=== PATIENT | male | born 1995 | race Caucasian/White ===

== ENCOUNTER 2021-01-29 16:59 | Emergency (ER) | payer OTHER ==
[~2021-01-29] VITALS: Ht 167.6 cm; Wt 68.0 kg
[2021-01-29 17:42] VITALS: BP_SYST 121; BP_SYST 122; BP_DIAS 74
[2021-01-29 17:51] VITALS: BP 121/72
--- NOTE | 2021-01-29 18:44 | ER.PDOC ---
General Chief Complaint: Male Stated Complaint: MALE Time seen by MD: 18:43 Source: patient Exam Limitations: no limitations History of Present Illness Initial Comments Left testicular pain since this afternoon. No fever or chills. Timing/Duration: this afternoon Severity/Quality: moderate, sharpness Associated Symptoms: Testicle pain (L), Scrotal swelling (left) Sexual History: Non-contributory Past Medical History Medical History: no pertinent history Surgical History: no surgical history Family History Significant Family History: no pertinent family hx Social History Alcohol Use: none Drug Use: none Review of Systems Constitutional: no symptoms reported EENTM: no symptoms reported Respiratory: no symptoms reported Cardiovascular: no symptoms reported Gastrointestinal: no symptoms reported Genitourinary: see HPI All Other Systems: Reviewed and Negative Physical Exam General Appearance: No Apparent Distress, WD/WN EENT: eyes nml inspection, nml ENT inspection, pharynx nml Neck: nml inspection, non-tender Cardiovascular/Respiratory: Regular Rate, Rhythm, No M/R/G, Normal Peripheral Pulses, No JVD, Normal Breath Sounds, No Respiratory Distress Abdomen: Normal Bowel Sounds, Non Tender, Soft, No Organomegaly, No Pulsatile Mass Male Genitals: Normal Genitalia, No Hernia, Scrotum Tenderness (L), Testicular Tenderness (L) Back: nml inspection Extremities: Normal Range of Motion, Non-Tender, Normal Inspection, No Pedal Edema, No Calf Tenderness, Normal Capillary Refill 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, No Motor/Sensory Deficits, Alert, Normal Mood/Affect, Oriented x 3 Skin: Normal Color, Warm/Dry Results/Orders Results/Orders Orders - SOM ZAMORA MD Cbc With Auto Diff (01/29/21 18:04) Us Scrotal (01/29/21 18:04) Basic Metabolic Panel (01/29/21 19:29) Vital Signs Date Time Temp Pulse Resp B/P (MAP) Pulse Ox O2 Delivery O2 Flow Rate FiO2 01/29/21 17:51 98.4 71 18 121/72 (88) 98 Room Air 01/29/21 17:42 98.4 71 18 01/29/21 17:42 98.4 73 18 98 Laboratory Tests Test 01/29/21 19:34 White Blood Count 13.9 10^3/uL (4.5-11.0) H Red Blood Count 5.05 10^6/uL (4.50-5.90) Hemoglobin 15.1 g/dL (13.9-16.3) Hematocrit 45.7 % (37.0-53.0) Mean Corpuscular Volume 90.5 fL (78-100) Mean Corpuscular Hemoglobin 29.9 pg (26-34) Mean Corpuscular Hemoglobin Concent 33.0 g/dL (33-36.5) Red Cell Distribution Width 12.9 % (11.5-14.5) Platelet Count 226 10^3/uL (150-400) Mean Platelet Volume 8.8 fL (7.8-11.0) Neutrophils (%) (Auto) 76.7 % (41.0-85.0) Lymphocytes (%) (Auto) 14.4 % (24.0-44.0) L Monocytes (%) (Auto) 5.8 % (5.0-12.0) Neutrophils # (Auto) 10.7 10^3/uL (1.8-7.7) H Lymphocytes # (Auto) 2.00 10^3/uL1 (1.0-4.8) Monocytes # (Auto) 0.8 10^3/uL (0.3-0.8) Absolute Immature Granulocyte (auto 0.02 10^3 u/L (0-2) Absolute Eosinophils (auto) 0.4 10^3/uL (0.0-0.2) H Immature Granulocytes % 0.10 % (0.00-0.50) Eosinophils % 2.6 % (0.0-5.0) Basophils % 0.4 % (0.0-0.2) H Basophils # 0.1 10^3/uL (0.0-0.1) Sodium Level 141 mmol/L (132-145) Potassium Level 4.3 mmol/L (3.6-5.2) Chloride Level 105.0 mmol/L (96-109) Carbon Dioxide Level 30.4 mmol/L (20.0-32) Glucose Level 91 mg/dL (70-110) Blood Urea Nitrogen 11 mg/dL (7-18) Creatinine 0.94 mg/dL (0.59-1.40) Calcium Level 9.3 mg/dL (8.4-10.5) Anion Gap 9.9 Estimated GFR () 119.3 (>/=60) Est GFR (CKD-EPI)(Non-Afr [place]) 98.6 (>/=60) BUN/Creatinine Ratio 11.0 Progress Progress Scrotal Sonogram: Findings suggestive of left and possible right epididymitis. No evidence of torsion. CBC shows a WBC of 13.9. Reviewed labs and sonogram results with the patient who voices understanding. No evidence of torsion. ER DEPART Departure Time of Disposition: 20:14 Disposition: 01 HOME / SELF CARE / HOMELESS Impression: Primary Impression: Epididymo-orchitis Condition: Stable Referrals: PCP,UNKNOWN (PCP) PRIMARY CARE PROVIDER Additional Instructions: Doxycycline Ibuprofen Follow-up with your PCP in 3 to 5 days Return to ED if worsening or concerns Duration or Time Spent with Pa: 45 min SOM ZAMORA MD Jan 29, 2021 18:44
--- NOTE | 2021-01-29 19:15 | DIREP ---
PROCEDURE:US TESTICULAR COMPARISON:None. INDICATIONS:Left testicular pain, red, swollen x3d, palp x4hrs TECHNIQUE:The scrotum was evaluated with grant scale, spectral analysis, and color duplex doppler sonography. FINDINGS: RIGHT TESTICLE: measures 5.6 x 2.6 x 3.7 cm. No mass or microcalcifications. LEFT TESTICLE: measures 4.9 x 2.5 x 3.6 cm. No mass or microcalcifications. EPIDIDYMIS:Prominent right 1.3 cm right. Enlarged left with increased vascularity, 1.6 cm. OTHER:Small bilateral hydroceles. DOPPLER FLOW: Symmetric waveforms with sustained diastolic flow. CONCLUSION:Findings suggestive of left and possible right epididymitis. No evidence of torsion. Dictated by: Leann Yip MD on 01/29/2021 at 07:08 PM
[2021-01-29 19:42] LABS: BASOPHIL # 0.1 10^3/uL (0.0-0.1); BASOPHIL % 0.4 % (0.0-0.2); EOSINOPHIL # 0.4 10^3/uL (0.0-0.2); EOSINOPHIL % 2.6 % (0.0-5.0); LYMPHOCYTES % 14.4 % (24.0-44.0); MEAN CORP HGB 29.9 pg (26-34); MONOCYTES # 0.8 10^3/uL (0.3-0.8); MONOCYTES % 5.8 % (5.0-12.0); NEUTROPHIL # 10.7 10^3/uL (1.8-7.7); NEUTROPHILS % 76.7 % (41.0-85.0); RED CELL DISTRIBUTION WIDTH 12.9 % (11.5-14.5)
[2021-01-29 19:50] LABS: CALCIUM 9.3 mg/dL (8.4-10.5); CARBON DIOXIDE 30.4 mmol/L (20.0-32)
[2021-01-29] MEDS ORDERED: CIPRO PO STA (20:12)
[2021-01-29] MEDS ORDERED: ROCEPHIN IM STA (20:12)
[2021-01-29] MEDS ORDERED: LIDOCAINE 1% VIAL ONE (20:15)
[2021-01-29] MEDS ORDERED: VIBRAMYCIN PO STA (20:15)
[2021-01-29] MEDS ORDERED: VIBRAMYCIN ONE ×2 (20:16→20:21)
[2021-01-29] MEDS ORDERED: ROCEPHIN ONE (20:16)
[2021-01-29 20:20] VITALS: BP 118/71
== END 2021-01-29 20:30 | disposition home or self-care (01) ==
LOC: ER 16:59
DX: N45.3 Epididymo-orchitis (principal)
CPT/HCPCS: 36415; 76870; 80048; 85025; 96372; 99284; J0696; J2001